=== PATIENT | male | born 1980 | race Caucasian/White ===

== ENCOUNTER 2016-12-27 18:43 | Emergency (ER) | payer MEDICAID, OTHER ==
[2016-12-27 18:51] VITALS: BP 145/92
[2016-12-27] MEDS ORDERED: FAMOTIDINE 20 MG TABLET PO ONE (19:13)
[2016-12-27] MEDS ORDERED: ALBUTEROL SULFATE/IPRATROPIUM 3 ML NEBU IH ONE ×2 (19:13→19:21)
[2016-12-27] MEDS ORDERED: ONDANSETRON 4 MG TAB.RAPDIS PO ONE (19:13)
[2016-12-27] MEDS ORDERED: METHYLPREDNISOLONE SOD SUCC/PF 40 MG/ML VIAL IM ONE (19:13)
--- NOTE | 2016-12-27 19:19 | ERNOTE ---
Date of Service: 12/27/16 Time Seen by Provider: 12/27/16 18:56 Stated Complaint: COLD Presenting Symptoms:: cough, sore throat, runny nose, fever, other - Nausea Exam Limitations: no limitations Immunizations: IMMUNIZATION HX Immunizations Up to Date Yes Allergies/Adverse Reactions: Allergies No Known Allergies Allergy (Verified 12/27/16 18:51) Home Medications: HOME MEDICATIONS Albuterol Sulfate [Proair Respiclick] 90 mcg IH Q6H #1 aer.pow.ba 12/27/16 [ Last Taken Unknown] Ondansetron [Zofran Odt] 4 mg PO Q8H PRN #10 tab 12/27/16 [Last Taken Unknown] predniSONE [Prednisone] 20 mg PO DAILY #5 tablet 12/27/16 [Last Taken Unknown] - History of Present Ilness Narrative: Patient comes due to coughing, nausea, fever, body ache, and sore throat since a couple of days ago. Patient denies any vomiting at the moment. Timing: intermittent Frequency/Possible Cause: Reports: smoke exposure Modifying Factors - Improves: Reports: nothing Modifying Factors - Worsens: Reports: cold, coughing, deep breath Associated Symptoms: Reports: cough, shortness of breath, nasal congestion, headache, sore throat, muscle aches, fever/chills, other - nausea. Denies: chest pain/soreness, wheezing, facial pain, dizziness, lightheadedness, earache Prior Treatment: Denies: recently seen Review of Systems - Review of Systems Constitutional: Present: recent illness, fever, chills, weakness, malaise. Absent: diaphoresis, fatigue, weight loss, fussy, decreased activity level EYE: Present: no symptoms reported ENT: Present: nose congestion, sore throat Respiratory: Present: cough. Absent: shortness of breath, wheezing Cardiology: Present: no symptoms reported Gastrointestinal/Abdominal: Present: nausea. Absent: vomiting, diarrhea, abdominal pain Genitourinary: Present: no symptoms reported Musculoskeletal: Present: no symptoms reported Skin: Present: no symptoms reported Neurological: Present: no symptoms reported Endocrine: Present: no symptoms reported Hematologic/Lymphatic: Present: no symptoms reported Psych: Present: no symptoms reported All Other Systems: All systems neg except as marked - Patient's Past Medical History Patient History - Medical: No pertinent hx Patient History - Cardiac/Respiratory: No pertinent hx Patient History - Cancer: No Hx of Cancer Patient History - Surgical Procedures: No surgical history Patient History - Other: None - Social History Living Situations: home Does anyone smoke in the home?: Yes Smoking Status: Current every day smoker Patient requests Smoking Cessation Consult: No Initiate information on Smoking Cessation: No Alcohol Use: none Drug Use: none - Immunizations Immunizations Up to Date: Yes Physical Exam - Physical Exam General Appearance: Present: wd/wn, alert, no apparent distress Eye Exam: Normal inspection: bilateral Ears, Nose, Throat: Present: pharyngeal erythema, pharyngeal swelling. Absent: dry mucous membranes Neck: Present: normal inspection, nontender. Absent: carotid bruit Respiratory: Present: no respiratory distress, normal breath sounds, no accessory muscle use, chest nontender, lungs clear, expiration (prolonged) Cardiovascular/Chest: Present: no murmur, normal peripheral pulses Gastrointestinal/Abdominal: Present: normal bowel sounds, nontender, nondistended, no organomegaly Back Exam: Present: normal inspection. Absent: CVA tenderness (R), CVA tenderness (L), muscle spasm Extremity Exam: Present: normal inspection, non-tender, normal range of motion Neurological Exam: Present: alert, oriented, normal mood/affect, no motor/ sensory deficits Skin Exam: Present: normal color, warm/dry Lymphatic Exam: Present: no adenopathy ED Progress - Date and Time Seen: Date and Time: 12/27/16 19:56 Patient is feeling better. Patient will be given Tx and will be send home. Patient at the moment with a viral illness. - Results and Orders Patient's Lab Results:: I have reviewed the patient's lab results. Results and Orders: Negative Flu - Vital Signs Patient's Vital Signs:: I have reviewed the patient's vital signs. Vital Signs: Vital Signs 12/27/16 18:48 Temperature 38.9 C H Pulse Rate 110 H Respiratory 20 Rate Blood Pressure 145/92 O2 Sat by Pulse 93 Oximetry - Progress/Reassessment Chief Complaint: Upper Respiratory Symptoms Progress:: Improved - Transfer of Care Expected Disposition: Discharge Departure - Departure Clinical Impression: Upper respiratory infection, viral Disposition: Home self-care Condition: Stable Instructions: Upper Respiratory Infection, Adult, [id number] Prescriptions: Albuterol Sulfate [Proair Respiclick] 90 mcg IH Q6H #1 aer.pow.ba Ondansetron [Zofran Odt] 4 mg PO Q8H PRN #10 tab PRN Reason: Nausea predniSONE [Prednisone] 20 mg PO DAILY #5 tablet
[2016-12-27] MEDS ORDERED: ONDANSETRON 4 MG TAB.RAPDIS ONE (19:20)
[2016-12-27] MEDS ORDERED: FAMOTIDINE 20 MG TABLET ONE (19:20)
[2016-12-27] MEDS ORDERED: METHYLPREDNISOLONE SOD SUCC/PF 40 MG/ML VIAL ONE (19:20)
--- OUTSIDE RECORDS SUMMARY | 2016-12-27 19:39 | XMS REPORT | Continuity of Care Document ---
:1980 Author Organization [facility] [place] [address] Care Team Providers Name Role Phone Unavailable Primary Care Provider Unavailable Source Comments This disclosure is being made pursuant to the [employer] program and maynot contain all information available regarding this patient.[facility] Active Allergies and Adverse Reactions Not on File Current Medications Be aware that medications may not be up to date as of this document. Alwaysverify current medications with the patient. Not on file Active Problems Not on file Social History Tobacco Use Types Packs/Day Years Used Date Never Assessed Plan of Care Health Maintenance Due Date Last Done Comments Retired-Pertussis Vaccine Adult 2000 Retired-Tetanus Vaccine Adult 2000 Retired-INFLUENZA VACCINE 06/28/2015 Results from Last 3 Months Not on file
== END 2016-12-27 20:04 | disposition home or self-care (01) ==
LOC: ER 18:43
DX: J06.9 Acute upper respiratory infection, unspecified (principal); Z72.0 Tobacco use